=== PATIENT | male | born 1935 | race Caucasian/White ===

== ENCOUNTER 2023-06-08 08:33 | Outpatient (CLI) | payer BC | END 2023-06-08 08:34 | disposition home or self-care (01) | LOC: CSHRAD 08:33 | PROVIDERS: ATTEND Family Medicine | DX: M79.644 Pain in right finger(s) (principal); M15.1 Heberden's nodes (with arthropathy) ==

== ENCOUNTER 2023-10-13 14:08 | Outpatient (CLI) | payer BC | END 2023-10-13 14:09 | disposition home or self-care (01) | LOC: CSHMRI 14:08 | PROVIDERS: ATTEND Family Medicine | DX: M47.26 Other spondylosis with radiculopathy, lumbar region (principal); M48.061 Spinal stenosis, lumbar region without neurogenic claudication | CPT/HCPCS: 72158; 82565 ==

== ENCOUNTER 2023-10-23 14:00 | Outpatient (CLI) | payer BC | END 2023-10-23 14:01 | disposition home or self-care (01) | LOC: CSHRAD 14:00 | PROVIDERS: ATTEND Neurological Surgery | DX: M48.062 Spinal stenosis, lumbar region with neurogenic claudication (principal); M47.816 Spondylosis without myelopathy or radiculopathy, lumbar region | CPT/HCPCS: 72100 ==